=== PATIENT | female | born 1995 | race Caucasian/White ===

== ENCOUNTER 2024-04-14 16:19 | Emergency (ER) | payer OTHER ==
[2024-04-14 16:21] VITALS: PULSE 94; O2SAT 98
== END 2024-04-14 18:29 | disposition left against medical advice (07) ==
LOC: ER 16:26
DX: J02.9 Acute pharyngitis, unspecified (principal); Z53.21 Procedure and treatment not carried out due to patient leaving prior to being seen by health care provider